=== PATIENT | female | born 1955 | race Caucasian/White ===

== ENCOUNTER 2016-09-06 06:28 | Day surgery (SDC) | payer BC ==
[2016-09-06] MEDS ORDERED: Lactated Ringers 1,000 ML IV SCH (06:45)
[2016-09-06] MEDS ORDERED: Propofol 200 MG/20 ML SDV ONE ×2 (07:42→08:04)
[2016-09-06] MEDS ORDERED: Midazolam 1 MG/ML 2 ML SDV ONE (07:42)
[2016-09-06] MEDS ORDERED: fentaNYL 100 MCG/2 ML SDV ONE (07:42)
[2016-09-06 09:12] VITALS: BP 139/90
--- NOTE | 2016-09-06 13:03 | OR ---
DATE OF PROCEDURE: 09/06/2016 PREOPERATIVE DIAGNOSIS: Gastroesophageal reflux disease and colon cancer screening. POSTOPERATIVE DIAGNOSIS: Gastroesophageal reflux disease, colonic diverticulosis. PROCEDURE: Esophagogastroduodenoscopy with biopsy of gastroesophageal junction , colonoscopy to the cecum. SURGEON: Sushant Hollis MD ANESTHESIA: IV anesthesia with monitored anesthesia care. INDICATIONS: This 61-year-old white female is referred for upper and lower endoscopy. Indication for an upper endoscopy is gastroesophageal reflux disease. Indication for the colonoscopy is colon cancer screening. Her last colonoscopic exam was done ten years ago. I counseled her for the procedures including risks and alternatives, and she gave her informed consent to proceed. DESCRIPTION OF PROCEDURE: The patient was placed in the left lateral decubitus position. IV anesthesia was administered by the Anesthesia Service. Time-out was held. The flexible video Olympus upper endoscope was passed through her mouth, down her esophagus, and into her stomach. The scope was easily passed through the pylorus into the duodenum reaching its third portion. The scope was then slowly withdrawn examining the mucosa throughout. The duodenal mucosa appeared unremarkable. The scope was brought up through the pylorus into the antrum. The antrum appeared unremarkable. The scope was retroflexed. The proximal stomach appeared unremarkable. The scope was straightened and brought up to the GE junction. This was abnormal, the Z-line was not straight. We did obtain biopsies totalling six of the GE junction. The scope was then brought proximally up through the remainder of the esophagus, which otherwise appeared unremarkable, and it was removed. Next , a rectal exam was performed which was unremarkable. The flexible video Olympus colonoscope was introduced through her anus, up her rectum, and out her colon all way to the cecum. En route, we saw a few scattered left-sided diverticula. There was no bleeding or inflammation associated with any of them. Once the cecum was reached, the scope was slowly withdrawn examining the mucosa throughout. No additional mucosal abnormalities were noted. The scope was retroflexed in the rectum with the distal rectum appearing unremarkable. The scope was straightened and removed. She tolerated the procedure well. Sushant Hollis MD /[id number] [place]
== END 2016-09-06 09:15 | disposition home or self-care (01) ==
LOC: JP.SDS 06:28
PROVIDERS: ATTEND Surgery
DX: Z12.11 Encounter for screening for malignant neoplasm of colon (principal); K31.89 Other diseases of stomach and duodenum; K57.30 Diverticulosis of large intestine without perforation or abscess without bleeding; K21.9 Gastro-esophageal reflux disease without esophagitis
CPT/HCPCS: 43239; 45378; J2250; J2704; J3010; J7120; 88305

== ENCOUNTER 2019-08-21 13:41 | Emergency (ER) | payer OTHER ==
[2019-08-21 14:32] VITALS: PULSE 82
[2019-08-21 14:33] VITALS: BP 170/98
[2019-08-21] MEDS ORDERED: Diphtheria,Pertussis(Acell),Tetanus Vaccine 0.5 ML SDV IM ONE (14:40)
--- NOTE | 2019-08-21 14:40 | EDM.PDOC ---
ED HPI GENERAL MEDICAL PROBLEM - General Chief Complaint: Bite:Animal, Insect Stated Complaint: DOG BITE Time Seen by Provider: 08/21/19 14:31 Source of Information: Reports: Patient History Limitations: Reports: No Limitations - History of Present Illness INITIAL COMMENTS - FREE TEXT/NARRATIVE: Patient presents for evaluation of a dog bite to the left hand which occurred just prior to arrival. Patient was walking in an area and coming from the other direction was a couple with a recently adopted dog. The other couple stated the dog was friendly and as she approached a couple the dog came forward and patient reached her hand out only to have the dog lately bite the left hand. There was minimal bleeding at the time and teeth did not completely puncture most of the skin. She has full function of the hand. Nothing else was injured. The dog was up-to-date on all vaccinations per her owners. The patient is not up -to-date on tetanus however. Onset: Today Location: Reports: Upper Extremity, Left Quality: Reports: Ache Severity: Mild Improves with: Reports: None Worsens with: Reports: None - Related Data Allergies Allergy/AdvReac Type Severity Reaction Status Date / Time No Known Allergies Allergy Verified 08/21/19 14:47 Home Meds: Home Meds Ascorbic Acid [C-1000] 1,000 mg PO DAILY 09/04/16 [History] Calcium Carbonate/Vitamin D3 [Calcium 600 + Vit D 200] 1 each PO DAILY 09/04/16 [History] Glucosam/Chond-Msm1/C/Thor/Bor [Ljvxujd-Seioj-QOL Complex Cplt] 1 each PO DAILY 09/04/16 [History] L.acidoph,Paracasei, B.lactis [Probiotic] 1 each PO DAILY 09/04/16 [History] Multivitamin [Multi-Vitamin Daily] 1 each PO DAILY 09/04/16 [History] Omeprazole 20 mg PO DAILY 09/04/16 [History] Past Medical History HEENT History: Reports: Impaired Vision Gastrointestinal History: Reports: GERD Genitourinary History: Reports: None 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: , Spontaneous Musculoskeletal History: Reports: Neck Pain, Chronic Endocrine/Metabolic History: Reports: Osteopenia - Infectious Disease History Infectious Disease History: Reports: Chicken Pox, Measles, Mumps - Past Surgical History HEENT Surgical History: Reports: None GI Surgical History: Reports: Colonoscopy Female Surgical History: Reports: D&C Endocrine Surgical History: Reports: None Musculoskeletal Surgical History: Reports: None Social & Family History - Caffeine Use Caffeine Use: Reports: Coffee ED ROS GENERAL - Review of Systems Review Of Systems: Comprehensive ROS is negative, except as noted in HPI. ED EXAM, ANIMAL BITE - Physical Exam Exam: See Below Text/Narrative:: This is a comfortable-appearing adult female sitting on the bed in room 7 with a Band-Aid over her thumb region. Exam Limited By: No Limitations General Appearance: Alert, No Apparent Distress Respiratory/Chest: No Respiratory Distress Cardiovascular: Regular Rate, Rhythm Extremities: Limited Range of Motion, Other (There is a small abrasion and adjacent to it a small puncture wound more or less in the webspace between the thumb and index finger. It is nonbleeding at this time. Resisted thumb flexion, extension, lateral bending shows no deficits. The thumb is neurovascularly intact. The index finger and associated region are nontender.) Skin Exam: Other (As described under extremities.) Course - Vital Signs Last Recorded V/S: Last Vital Signs Temp 35.9 C L 08/21/19 14:51 Pulse 82 08/21/19 14:51 Resp 14 08/21/19 14:51 BP 170/98 H 08/21/19 14:51 Pulse Ox 98 08/21/19 14:51 - Orders/Labs/Meds Orders: Active Orders 24 hr Category Date Time Status Vaccines to be Administered [RC] PER UNIT ROUTINE Care 08/21/19 14:41 Active Meds: Medications Discontinued Medications Generic Name Dose Route Start Last Admin Trade Name Freq PRN Reason Stop Dose Admin Diphtheria/Tetanus/Acell Pertussis 0.5 ml 08/21/19 14:40 08/21/19 14:52 Adacel IM 08/21/19 14:41 0.5 ml .ONCE ONE Administration - Re-Assessments/Exams Free Text/Narrative Re-Assessment/Exam: 08/21/19 15:22 There are no deficits associated in the hand region. She had irrigated the hand with water and also hydrogen peroxide prior to presenting here today. She was given an Adacel booster. Also sent with a prescription for Augmentin 875/125 mg , 20 tablets; use until gone. Ibuprofen or naproxen as needed for discomfort. Watch for development of redness, pus drainage, red streaks leading up the arm and if you notice any of these, return to emergency department. Departure - Departure Time of Disposition: 14:52 Disposition: Home, Self-Care 01 Condition: Good Clinical Impression: Dog bite of hand Qualifiers: Encounter type: initial encounter Laterality: left Qualified Code(s): S61.452A - Open bite of left hand, initial encounter - Discharge Information *PRESCRIPTION DRUG MONITORING PROGRAM REVIEWED*: Not Applicable *COPY OF PRESCRIPTION DRUG MONITORING REPORT IN PATIENT ADRIA: Not Applicable Instructions: Animal Bite, Adult, [id number] Referrals: Lucero Grace PA [Primary Care Provider] - Forms: ED Department Discharge Additional Instructions: Start antibiotic and complete all tablets. Use ibuprofen or Aleve for pain. Avoid use of left hand to reduce swelling. Return to ER if you notice redness, increased swelling, any red streaks going up the arm or for any other concern related to the dog bite. Sepsis Event Note (ED) - Focused Exam Vital Signs: Vital Signs Temp Pulse Resp BP Pulse Ox 08/21/19 14:51 35.9 C L 82 14 170/98 H 98 08/21/19 14:32 35.9 C L 82 14 170/98 H 98 - My Orders Last 24 Hours: My Active Orders 08/21/19 14:41 Vaccines to be Administered [RC] PER UNIT ROUTINE - Assessment/Plan Last 24 Hours: My Active Orders 08/21/19 14:41 Vaccines to be Administered [RC] PER UNIT ROUTINE
== END 2019-08-21 15:22 | disposition home or self-care (01) ==
LOC: JP.ED 13:41
DX: S61.452A Open bite of left hand, initial encounter (principal); K21.9 Gastro-esophageal reflux disease without esophagitis; Z79.899 Other long term (current) drug therapy; Z23 Encounter for immunization; W54.0XXA Bitten by dog, initial encounter
CPT/HCPCS: 90471; 90715; 99283-25